=== PATIENT | female | born 1950 | race Caucasian/White ===

== ENCOUNTER → 2019-08-05 | Outpatient (CLI) | payer OTHER ==
[~2019-08-05] MED LIST: ALEVE220 MG PO; ALPRAZOLAM 0.0.25 MG PO; ASA5UEC; ASPIRIN EC325 M1 PO; EFFEXOR XR75 MG PO; EFFEXOR75 MG PO; LIPITOR40 MG PO; NITROGLYCERIN0.4 MG SL; PLAVIX 75 MG TA75 M1 PO; PLAVIX 75 MG TA75 MG PO; TOPROL XL50 MG PO; ZOCOR40 MG PO; ZYRTEC10 M2 PO
== END ==
LOC: RAD 14:50
DX: M47.26 Other spondylosis with radiculopathy, lumbar region (principal); M48.061 Spinal stenosis, lumbar region without neurogenic claudication